=== PATIENT | female | born 1960 | race Asian ===

== ENCOUNTER 2018-12-01 08:15 | Emergency (ER) | payer BC, MEDICAID ==
[~2018-12-01] VITALS: Ht 152.4 cm; Wt 68.0 kg
[2018-12-01 08:17] VITALS: Ht 152.4 cm; Wt 68.0 kg
[2018-12-01 10:33] VITALS: BP 139/87
== END 2018-12-01 10:33 | disposition home or self-care (01) ==
LOC: ED 08:15
DX: J02.9 Acute pharyngitis, unspecified (principal); I10 Essential (primary) hypertension; E78.00 Pure hypercholesterolemia, unspecified
CPT/HCPCS: J1100